=== PATIENT | female | born 1980 | race African-American/Black ===

== ENCOUNTER 2021-08-10 19:41 | Emergency (ER) | payer BC, OTHER ==
[~2021-08-10] VITALS: Ht 170.2 cm; Wt 129.7 kg
[2021-08-11] MEDS ORDERED: LIDOCAINE 1% HCL (LOCAL ANESTH.) INJ 20ML MDV ID ONE (01:15)
[2021-08-11] MEDS ORDERED: TETANUS-DIPTH-ACEL PERTUSSIS 0.5ML SYR Tdap IM ONE (02:00)
[2021-08-11] MEDS ORDERED: CLINDAMYCIN HCL 150 MG CAP PO ONE (03:00)
[2021-08-11] MEDS ORDERED: OXYCODONE W/ ACETAMINOPHEN 5/325MG TABLET PO ONE (03:00)
[2021-08-11] MEDS ORDERED: ONDANSETRON ODT 4 MG TAB PO ONE (03:00)
[2021-08-11] MEDS ORDERED: CLIN-203 PO (03:51)
[2021-08-11] MEDS ORDERED: ONDA-144 PO (03:51)
[2021-08-11] MEDS ORDERED: PERCOT PO (03:51)
[2021-08-11 05:25] VITALS: BP 140/98
== END 2021-08-11 05:27 | disposition home or self-care (01) ==
LOC: ER 19:41
DX: S93.115A Dislocation of interphalangeal joint of left lesser toe(s), initial encounter (principal); S91.115A Laceration without foreign body of left lesser toe(s) without damage to nail, initial encounter; I10 Essential (primary) hypertension; Z91.041 Radiographic dye allergy status; W01.0XXA Fall on same level from slipping, tripping and stumbling without subsequent striking against object, initial encounter; Y93.89 Activity, other specified; Y92.89 Other specified places as the place of occurrence of the external cause; Y99.8 Other external cause status
CPT/HCPCS: 12001; 71045; 73630; 90471; 90715; 99284; J2001; Q0162

== ENCOUNTER 2021-08-12 06:19 | Emergency (ER) | payer BC ==
[~2021-08-12] VITALS: Ht 170.2 cm; Wt 129.7 kg
[~2021-08-12 06:19] MED LIST: CLIN-203 PO; ONDA-144 PO; PERCOT PO
[2021-08-12 08:01] VITALS: BP 152/101
== END 2021-08-12 08:06 | disposition home or self-care (01) ==
LOC: ER 06:19
DX: S91.115D Laceration without foreign body of left lesser toe(s) without damage to nail, subsequent encounter (principal); E66.01 Morbid (severe) obesity due to excess calories; I10 Essential (primary) hypertension; Z68.41 Body mass index [BMI] 40.0-44.9, adult; X58.XXXD Exposure to other specified factors, subsequent encounter